=== PATIENT | male | born 1975 | race Hispanic/Latino ===

== ENCOUNTER 2024-01-23 11:41 | Emergency (ER) | payer SELFPAY ==
--- NOTE | 2024-01-23 12:39 | ER ---
Nurse's Notes [facility] Name: Reed Conti Age: 48 yrs Sex: Male : 1975 Arrival Date: 01/23/2024 Time: 11:41 Bed 18 Private MD: Diagnosis: Ventricular premature depolarization Presentation: 01/22 12:04 Chief complaint: Patient states: went to do my physical and they said my heart rate was iw too low, he feels normal every day but my doctor gave metoprolol , stopped it a few months ago and then he started taking it again last week. 12:04 Acuity: SHAYNA 3 iw 12:48 Coronavirus screen: Client denies travel out of the [place] in the last 14 days. At this cm10 time, the client does not indicate any symptoms associated with coronavirus-19. Ebola Screen: Patient denies travel to an Ebola-affected area in the 21 days before illness onset. No symptoms or risks identified at this time. Initial Sepsis Screen: Does the patient meet any 2 criteria? No. Patient's initial sepsis screen is negative. Does the patient have a suspected source of infection? No. Patient's initial sepsis screen is negative. Risk Assessment: Do you want to hurt yourself or someone else? Patient reports no desire to harm self or others. 12:48 Method Of Arrival: Ambulatory cm10 12:49 Onset of symptoms. cm10 Historical: - Allergies: 12:09 No Known Allergies; iw - Home Meds: 12:10 metoprolol succinate 25 mg oral Tablet, Extended Release 24 hr daily [Active]; aspirin iw 81 mg Oral capsule daily [Active]; nitroglycerin 0.4 mg SL Tablet, Sublingual [Active]; - PMHx: 12:09 Myocardial infarction; Hypertensive disorder; iw - PSHx: 12:10 cardiac stent; iw - Immunization history:: Adult Immunizations not up to date. - Infectious Disease History:: Denies. - Social history:: Smoking status: Patient/guardian denies using tobacco, the patient reports quitting approximately 1 years ago. Screenin:48 [facility] ED Fall Risk Assessment (Adult) History of falling in the last 3 months, cm10 including since admission No falls in past 3 months (0 pts) Confusion or Disorientation No (0 pts) Intoxicated or Sedated No (0 pts) Impaired Gait No (0 pts) Mobility Assist Device Used No (0 pt) Altered Elimination No (0 pt) Score/Fall Risk Level 0 - 2 = Low Risk Oriented to surroundings, Maintained a safe environment, Hourly rounding (assess needs \T\ fall precautionary measures) done. Abuse screen: Denies threats or abuse. Denies injuries from another. Nutritional screening: No deficits noted. Tuberculosis screening: No symptoms or risk factors identified. Assessment: 12:47 General: Appears in no apparent distress. comfortable, Behavior is calm, cooperative. cm10 Pain: Denies pain. Neuro: No deficits noted. Level of Consciousness is awake, alert, obeys commands, Oriented to person, place, time, situation, Appropriate for age. Respiratory: No deficits noted. Airway is patent Respiratory effort is even, unlabored, Respiratory pattern is regular, symmetrical. Derm: No deficits noted. Skin is intact, Skin is pink, warm \T\ dry. Musculoskeletal: No deficits noted. Range of motion: intact in all extremities. Vital Signs: 12:08 BP 164 / 104; Pulse 48; Resp 16; Temp 98.1; Pulse Ox 99% on R/A; Weight 104.33 kg; iw Height 5 ft. 6 in. ; 12:08 Body Mass Index 37.12 (104.33 kg, 167.64 cm) iw ED Course: 11:43 Patient arrived in ED. db 11:44 Clarence Roy PA is PHCP. jr8 11:44 Jordy Guerrero MD is Attending Physician. jr8 12:08 Triage completed. iw 12:30 Arm band placed on Patient placed in an exam room, on a stretcher. EKG completed in cm10 triage. Results shown to MD. 12:38 Nolan Lea MD is Referral Physician. jr8 12:48 Patient has correct armband on for positive identification. Provided Education on: cm10 Follow-up instructions. 12:48 No provider procedures requiring assistance completed. Patient did not have IV access cm10 during this emergency room visit. Administered Medications: No medications were administered Medication: 12:48 VIS not applicable for this client. cm10 Outcome: 12:38 Discharge ordered by . jr8 12:48 Discharged to home ambulatory, with family, cm10 12:48 Condition: good 12:48 Discharge instructions given to patient, Instructed on discharge instructions, follow up and referral plans. Demonstrated understanding of instructions, follow-up care, 12:49 Patient left the ED. cm10 Signatures: Clarissa Johnson RN RN iw Clarence Roy PA PA jr8 Susan Sweeney RN RN db Ronda Cortez RN RN cm10 Corrections: (The following items were deleted from the chart) 12:12 12:08 BP 164 / 104; Pulse 48bpm; Resp 16bpm; Pulse Ox 99% RA; Temp 98.1F; iw satnam
--- NOTE | 2024-01-23 12:39 | EDPHYS ---
Physician Documentation [facility] Name: Reed Conti Age: 48 yrs Sex: Male : 1975 Arrival Date: 01/23/2024 Time: 11:41 Bed 18 Private MD: ED Physician Jordy Guerrero HPI: 01/22 12:39 This 48 yrs old Male presents to ER via Unassigned with complaints of Low jr8 Heart Rate. 12:39 48-year-old male patient presented to the emergency room after being seen by his [facility] primary care physician and was told to follow-up because his heart rate was too slow. Patient stated that he is been asymptomatic, no chest pain, no shortness of breath, no dizziness, or any other symptoms. Patient stated that he drove himself to the emergency room to ensure everything was okay after talking with his primary care doctor. History of VA and hypertensive disorder in the past. Had been off of his metoprolol for a while but started back a couple weeks ago.. Severity of symptoms: At their worst the symptoms were very mild. It is unknown whether or not the patient has had similar symptoms in the past. The patient has been recently seen by a physician:. Historical: - Allergies: 12:09 No Known Allergies; iw - Home Meds: 12:10 metoprolol succinate 25 mg oral Tablet, Extended Release 24 hr daily [Active]; aspirin iw 81 mg Oral capsule daily [Active]; nitroglycerin 0.4 mg SL Tablet, Sublingual [Active]; - PMHx: 12:09 Myocardial infarction; Hypertensive disorder; iw - PSHx: 12:10 cardiac stent; iw - Immunization history:: Adult Immunizations not up to date. - Infectious Disease History:: Denies. - Social history:: Smoking status: Patient/guardian denies using tobacco, the patient reports quitting approximately 1 years ago. ROS: 12:39 Eyes: Negative for injury, pain, redness, and discharge, ENT: Negative for injury, jr8 pain, and discharge, Neck: Negative for injury, pain, and swelling, Cardiovascular: Negative for chest pain, palpitations, and edema, Respiratory: Negative for shortness of breath, cough, wheezing, and pleuritic chest pain, Abdomen/GI: Negative for abdominal pain, nausea, vomiting, diarrhea, and constipation, Back: Negative for injury and pain, MS/Extremity: Negative for injury and deformity, Skin: Negative for injury, rash, and discoloration, Neuro: Negative for headache, weakness, numbness, tingling, and seizure, Exam: 12:39 Constitutional: This is a well developed, well nourished patient who is awake, alert, jr8 and in no acute distress. Eyes: Pupils equal round and reactive to light, extra-ocular motions intact. Lids and lashes normal. Conjunctiva and sclera are non-icteric and not injected. Cornea within normal limits. Periorbital areas with no swelling, redness, or edema. Respiratory: Lungs have equal breath sounds bilaterally, clear to auscultation and percussion. No rales, rhonchi or wheezes noted. No increased work of breathing, no retractions or nasal flaring. Abdomen/GI: Soft, non-tender, with normal bowel sounds. No distension or tympany. No guarding or rebound. No evidence of tenderness throughout. Back: No spinal tenderness. No costovertebral tenderness. Full range of motion. Skin: Warm, dry with normal turgor. Normal color with no rashes, no lesions, and no evidence of cellulitis. MS/ Extremity: Pulses equal, no cyanosis. Neurovascular intact. Full, normal range of motion. Neuro: Awake and alert, GCS 15, oriented to person, place, time, and situation. Cranial nerves II-XII grossly intact. Motor strength 5/5 in all extremities. Sensory grossly intact. Cerebellar exam normal. Normal gait. 12:39 Cardiovascular: Rate: bradycardic, Rhythm: irregular, Pulses: Pulses are 2+ in right radial artery and left radial artery. Heart sounds: normal, normal S1and S2, no S3 or S4, Edema: is not appreciated, 12:39 ECG was reviewed by the Attending Physician. Vital Signs: 12:08 BP 164 / 104; Pulse 48; Resp 16; Temp 98.1; Pulse Ox 99% on R/A; Weight 104.33 kg; iw Height 5 ft. 6 in. ; 12:08 Body Mass Index 37.12 (104.33 kg, 167.64 cm) iw MDM: 11:45 Patient medically screened. jr8 12:39 Differential Diagnosis Arrhythmia, bradycardia, electrolyte imbalance, dehydration, jr8 medication side effects. Data reviewed: vital signs, nurses notes, EKG. Counseling: I had a detailed discussion with the patient and/or guardian regarding the historical points, exam findings, and any diagnostic results supporting the discharge/admit diagnosis, the need for outpatient follow up, a assembly operator, to return to the emergency department if symptoms worsen or persist or if there are any questions or concerns that arise at home. ED course: Patient asymptomatic. HR upon manual palpation between 54-74 bpm. No other acute ECG changes. Recommended that he see cardiology and for now stay at 12.5 mg metoprolol instead of 25mg. If he were to become symptomatic to immediately come back to ED for reevaluation. Otherwise no need to have further workup at this time. Patient agreed and good with plan. Will f/u with local cardiology here in which we referred to. . EC:39 Rate is 74 beats/min. Rhythm is irregular, Sinus Rhythm with Multifocal PVCs. QRS [place] jr8 is Normal. UT interval is normal at 136 msec. QRS interval is normal at 76 msec. QT interval is normal at 428 msec. No Q waves. T waves are Normal. No ST changes noted. Clinical impression: Sinus Rhythm with frequent multifocal PVCs. Interpreted by me. Reviewed by me. Administered Medications: No medications were administered Disposition Summary: 01/23/24 12:38 Discharge Ordered Notes: Location: Home jr8 Problem: new jr8 Symptoms: are unchanged jr8 Condition: Stable jr8 Diagnosis - Ventricular premature depolarization jr8 Followup: jr8 - With: Nolan Lea MD - When: 2 - 3 days - Reason: Recheck today's complaints, Continuance of care, Re-evaluation by your physician Discharge Instructions: - Discharge Summary Sheet jr8 - Premature Ventricular Contraction jr8 Forms: - Medication Reconciliation Form jr8 - Antibiotic Education jr8 - Prescription Opioid Use jr8 - Patient Portal Instructions jr8 - Leadership Thank You Letter jr8 Signatures: Dispatcher [employer] EDClarissa Banuelos RN RN Clarence Delgado PA PA jr8 Corrections: (The following items were deleted from the chart) 11:55 11:45 Head Brain Wo Cont+CT.RAD.BRZ ordered. EDMS EDMS
[2024-01-23 12:54] VITALS: BP 164/104; TEMP 98.1; O2SAT 99
== END 2024-01-23 12:49 | disposition home or self-care (01) ==
LOC: ER 11:41
DX: I49.3 Ventricular premature depolarization (principal); I10 Essential (primary) hypertension; I25.2 Old myocardial infarction
CPT/HCPCS: 99283